=== PATIENT | female | born 1950 | race Caucasian/White ===

== ENCOUNTER → 2021-01-21 | Outpatient (CLI) | payer OTHER ==
[~2021-01-21] MED LIST: ALPRAZOLAM 0.0.25 M1 PO; CELEXA40 MG PO; COZAAR 50 MG TA50 M1 PO; LIPITOR 20 MG T20 M1 PO; LUMIGAN2.5 ML; PRED FORTE 1% EY5 M1; PROZAC20 MG PO; TESSALON PERLE100 MG PO; TOPROL XL25 MG PO; VENTOLIN HFA 1818 GM INH; XALATAN2.5 ML OPHTHALMIC
== END ==
LOC: CAT 12:23
PROVIDERS: ATTEND Internal Medicine Cardiovascular Disease
DX: Z13.6 Encounter for screening for cardiovascular disorders (principal)

== ENCOUNTER → 2021-01-21 | Outpatient (CLI) | payer OTHER ==
[~2021-01-21] MED LIST changes: +BUSPIRONE HCL5 MG PO; +ELIQUIS5 MG PO; +TAMBOCOR 100 M100 M1 PO; +XANAX 0.25 MG0.25 MG PO
== END ==
LOC: SJCVC 10:16
PROVIDERS: ATTEND Internal Medicine Cardiovascular Disease
DX: R94.31 Abnormal electrocardiogram [ECG] [EKG] (principal); R00.0 Tachycardia, unspecified; I49.1 Atrial premature depolarization; I48.0 Paroxysmal atrial fibrillation; R00.2 Palpitations; E78.5 Hyperlipidemia, unspecified; I10 Essential (primary) hypertension; R06.00 Dyspnea, unspecified; I48.91 Unspecified atrial fibrillation; F41.9 Anxiety disorder, unspecified; F32.9 Major depressive disorder, single episode, unspecified; Z79.899 Other long term (current) drug therapy; Z88.1 Allergy status to other antibiotic agents

== ENCOUNTER 2021-01-25 11:40 | Inpatient (IN) | payer OTHER ==
[~2021-01-25] VITALS: Ht 152.4 cm; Wt 75.3 kg
[~2021-01-25 11:40] MED LIST changes: -BUSPIRONE HCL5 MG PO; -ELIQUIS5 MG PO; -TAMBOCOR 100 M100 M1 PO; -XANAX 0.25 MG0.25 MG PO
[2021-01-25] MEDS ORDERED: ELIQUIS5 MG PO (12:43)
[2021-01-25] MEDS ORDERED: TAMBOCOR 100 M100 M1 PO (12:44)
[2021-01-25] MEDS ORDERED: BUSPIRONE HCL5 MG PO (12:45)
[2021-01-25] MEDS ORDERED: XANAX 0.25 MG0.25 MG PO (12:46)
--- NOTE | 2021-01-25 12:47 | NUR ---
PT ORIENTED TO RROM AND UNIT, BED LOW AND LOCKED, SIDE RAILS UPX3, CALL LIGHT IN REACH, TELE APPLIED.
[2021-01-25 13:00] VITALS: BP 158/103
[2021-01-25 15:46] VITALS: BP 150/96
--- NOTE | 2021-01-25 16:06 | EKG ---
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: FSCHWALBE : 1950 Requested By: Judith Triplett Order Number: [id number] MD: Ben Padilla Measurements Intervals [place] Rate: 109 P: OR: QRS: -12 QRSD: 79 T: 5 QT: 366 QTc: 494 Interpretive Statements Suspect Atrial flutter with predominant 2:1 AV block Ventricular premature complex Baseline wander in lead(s) I,II,III,aVR,aVF,V4,V5 Compared to ECG 10/01/2016 04:36:43 2:1 AV block now present Ventricular premature complex(es) now present Sinus rhythm no longer present ST (T wave) deviation no longer present Electronically Signed On 01-25-2021 16:06:37 CDT by Ben Padilla [email or web address] <ELECTRONICALLY SIGNED> By: Ben Padilla MD, [facility] 01/25/21 1606 1547 1547 Ben Padilla MD, [facility] /EPI
[2021-01-25 16:09] LABS: HEMATOCRIT 37.7 % (37.0-47.0); HEMOGLOBIN 12.5 gm/dL (12.0-15.0); MCH 31.4 pg (26.0-34.0); MCHC 33.3 g/dL (28.0-37.0); MCV 94.5 fL (80.0-100.0); RBC 3.99 mil/uL (4.20-5.00); RDW 13.6 % (10.5-14.5); WBC 9.9 thou/uL (4.0-11.0)
[2021-01-25 16:25] LABS: ALBUMIN 2.9 g/dL (3.4-5.0); CALCIUM 8.7 mg/dL (8.5-10.1); POTASSIUM 5.4 mmol/L (3.5-5.1); TOTAL PROTEIN 7.2 g/dL (6.4-8.2)
--- NOTE | 2021-01-25 19:06 | NUR ---
BEDSIDE REPORT GIVEN AND SCDS ON BILAT.
[2021-01-25 20:00] VITALS: BP 179/104
[2021-01-26 00:08] VITALS: BP 101/104
--- NOTE | 2021-01-26 03:38 | NUR ---
ASSESSMENTS CHARTED, MEDS CHARTED GIVEN. PATIENT IS LEGALLY BLIND, AND REQUESTED HER STAY TO HELP HER. PER SHERLYN, NEEDED TO GO HOME BUT CAN RETURN AT 0500 0R 0600 HIS IS HAVING SURGERY IN THE AM. PATIENT TO HAVE PACEMAKER PLACEMENT PROCEDURE IN THE AM. C/O ANXIETY, MEDS GIVEN CHARTED. PATIENT HAS BEEN NPO SINCE MIDNIGHT FOR MORNING PROCEDURE.
[2021-01-26 04:30] VITALS: BP 159/110
--- NOTE | 2021-01-26 05:39 | NUR ---
PATIENT WENT BACK INTO AFIB W/ RVR. SPOKE WITH DR. COURTNEY. RECEIVED ORDERS FOR AMIODARONE AND DILTIAZEM BOTH PER PROTOCOL. IV'S WERE STARTED. MEDS WERE EXPLAINED TO PATIENT.
[2021-01-26 07:58] LABS: APTT 27.8 Seconds (24.5-32.8); PROTIME 10.9 Seconds (10.5-12.1)
--- NOTE | 2021-01-26 08:04 | NUR ---
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
--- NOTE | 2021-01-26 11:59 | NUR ---
PT IN BED WITH BEDREST ORDERS. PT VOICES NO CONCERNS AT THIS TIME. PTS ASSESSMENT CHARTED. PT EDUCATED ON HEART RATE MEDICATIONS AND PLAN FOR THE REST OF THE DAY. PT EDUCATED ON CARDIAC PROCEDURE POST OP. VSS. WILL CONTINUE TO MONITOR AND FOLLOW POC.
--- NOTE | 2021-01-26 16:09 | NUR ---
PT IN BED, TALKING WITH FAMILY. ASSESSMENT UNCHANGED. VSS. WILL CONTINUE TO MONITOR AND FOLLOW POC.
[2021-01-26 16:13] VITALS: BP 163/81
[2021-01-26 21:42] VITALS: BP 163/59
--- NOTE | 2021-01-27 08:23 | NUR ---
ASSUMED PT CARE AT 0700, PT RESTING AT THIS TIME. ASSESSMENT PERFORMED CHARTED. VSS. WILL CONITNUE TO MONITOR AND FOLLOW POC. ANKUR Cummins NP DISCUSSED WITH PATIENT ABOUT POSSIBLE CARDIOVERSION TOMORROW DUE TO UNCONTROLLED AFIB.
[2021-01-27 11:37] VITALS: BP 142/65
--- NOTE | 2021-01-27 11:42 | NUR ---
PT IN BED WITH FAMILY AT BEDSIDE, ASSESSMENT UNCHANGED. VSS. WILL CONTINUE TO MONITOR AND FOLLOW POC.
--- NOTE | 2021-01-27 16:22 | NUR ---
PTS ASSESSMENT UNCHANGED. PT IN BED TALKING WITH FAMILY IN THE ROOM. PT DENIES ANY CONCERNS AT THIS TIME. CONSENT FOR UNA SIGNED. PT ABLE TO VERBALIZE WHAT THE PROCEDURE IS AND THE PROVIDER TALKED TO HER ABOUT THE PROCEDURE. VSS. WILL CONTINUE TO MONITOR AND FOLLOW POC.
[2021-01-27 19:36] VITALS: BP 140/75
[2021-01-28 00:23] VITALS: BP 151/70
[2021-01-28 05:05] VITALS: BP 149/77
--- NOTE | 2021-01-28 07:31 | NUR ---
PATIENTS CARES WERE ASSUMED AT SHIFT CHANGE. PATIENT WAS ASSESSED AND MEDS WERE GIVEN. PATIENT CONTINUES TO HAVE HER AMIO GTT GOING AT 0.5 PER HOUR. PATIENT IS HAPPY THAT SHE IS GOING HOME. ROUNDS WERE DONE. THE BED ALARM WAS ON . THE BED IS IN A LOW AND LOCKED POSITION.
[2021-01-28 07:38] VITALS: BP 126/88
--- NOTE | 2021-01-28 09:55 | TEE ---
[facility] [place] [address] TRANSESOPHAGEAL ECHOCARDIOGRAM Name: SRAVANTHI PATEL Room #: 206-P ADM IN M.R.#: [id number] Admission: 01/25/21 Attend Phys: Gumaro Cavazos MD, Discharge: Date of : 54 Report #: [id number] THIS REPORT FOR: cc: Tigist Calvillo MD, Cora A. MD Santiago, Patrick MD FAC ~ APPROVED REPORT Study performed: 01/28/2021 08:27:24 EXAM: Transesophageal Echocardiogram Patient Location: In-Patient Room #: [facility] Status: routine BSA: 1.72 HR: 120 bpm BP: 133/50 mmHg Rhythm: Atrial Fibrillation Other Information Study Quality: Good Indications Atrial Fibrillation Cardioversion. Pacemaker implanted 01/26/21 Procedure After obtaining informed consent, patient underwent transesophageal echo in the [employer]. Type of Sedation : Conscious Sedation Sedation was administered by DEL Jennings. Sedation was achieved intravenously with: Versed (5) Fentanyl (50) Transesophageal probe was inserted and advanced into esophagus without difficulty by Ben Padilla MD [facility]. Echo enhancement indication: R/O Septal defect. Echo enhancement agent administered: Agitated Saline The UNA was performed without complications. Synchronized Cardioversion attempted: Unsuccessful Synchronized Cardioversion acheived with 100 Joules after 2 attempt(s). Rhythm following Synchronized Cardioversion: Afib Throughout the procedure, the blood pressure, pulse oximetry, cardiac rhythm, and rate were monitored. [facility] [address] [place] [address] TRANSESOPHAGEAL ECHOCARDIOGRAM Name: SRAVANTHI PATEL Room #: 206-P [facility] IN .R.#: [id number] Admission: 01/25/21 Attend Phys: Gumaro Cavazos, Discharge: Date of : 54 Report #: [id number] The patient tolerated the procedure without adverse effects. Recovery from conscious sedation was uneventful and vital signs were stable. Left Ventricle The left ventricle is normal size. Left ventricular systolic function is mildly decreased. LVEF is 45-50%. Right Ventricle The right ventricle is normal size. The right ventricular systolic function is normal. Atria Left atrium is dilated. No thrombus is visualized in the left atrium or appendage. Pacemaker lead is present in the right atrium. No shunting noted with contrast bubble injection. Aortic Valve The aortic valve is normal in structure. Mild aortic regurgitation. There is no aortic valvular stenosis. Mitral Valve The mitral valve is normal in structure. Mild mitral regurgitation. No evidence of mitral valve stenosis. Tricuspid Valve The tricuspid valve is normal in structure. Mild tricuspid regurgitation. Great Vessels The aortic root is normal in size. The ascending aorta is normal. <Conclusion> Atrial fibrillation at baseline Timeout was performed Consent was obtained After appropriate sedation esophageal probe was advanced without difficulty. Left atrial appendage, moderate size, no obvious mass or clot detected Mild left atrial enlargement Normal left ventricle size/wall thickness Mild global hypokinesis ejection fraction 45-50% Normal right ventricular size/function Tricuspid aortic valve [facility] [address] [place] [address] TRANSESOPHAGEAL ECHOCARDIOGRAM Name: SRAVANTHI PATEL Room #: 206-P [facility] IN .R.#: [id number] Admission: 01/25/21 Attend Phys: Gumaro Cavazos, Discharge: Date of : 54 Report #: [id number] Mild aortic valve insufficiency Mild mitral valve insufficiency Mild tricuspid valve insufficiency Pacer wire detected in the right ventricle Aorta no calcification detected No evidence of ASD/VSD by color flow/bubble study Patient was converted to sinus rhythm after 100-100 J in a biphasic mode Patient tolerated procedure well <ELECTRONICALLY SIGNED> By: Ben Padilla MD, FACC 01/28/2154 3 3 Ben Padilla MD, FACC /INF
[2021-01-28 11:12] VITALS: BP 124/71
[2021-01-28] MEDS ORDERED: DIGOXIN250 MCG PO (13:27)
[2021-01-28] MEDS ORDERED: PACERONE 200 M200 M1 PO (13:27)
[2021-01-28] MEDS ORDERED: DILTIAZEM 24HR300 M2 PO (13:27)
[2021-01-28 15:37] VITALS: BP 124/71
--- NOTE | 2021-01-28 15:38 | NUR ---
ASSESSMENT CHARTED. PT ALERT AND ORIENTED. DENIED HAVING PAIN OR DISCOMFORT. SEEN BY DR. COURTNEY. ORDERS GIVEN TO DISCHARGE PT TO HOME. DISCHARGE INSTRUCTIONS GIVEN TO PT AND THE SPOUCE/ SON. THEY VERBERLISED UNDERSTANDING.
[2021-01-28 16:42] VITALS: BP 120/52
--- NOTE | 2021-01-31 07:10 | EKG ---
[facility] [employer] [facility] [place] [address] ELECTROCARDIOGRAM REPORT Name: SRAVANTHI PATEL Room #: 206-[facility] IN .R.#: [id number] Admission: 01/25/21 Attend Phys: Gumaro Cavazos MD, Discharge: 01/28/21 Date of : 54 Report #: [id number] [facility] Test Date: 2021-01-28 Test Time: 13:53:32 Pat Name: SRAVANTHI PATEL Department: Room: 206 Gender: F Rn Radiation Oncology: FSCHWALCRIS : 1950 Requested By: Judith Triplett Order Number: [id number] MD: Ben Padilla Measurements Intervals [place] Rate: 65 P: MD: QRS: -6 QRSD: 69 T: -87 QT: 237 QTc: 247 Interpretive Statements Atrial flutter with predominant 4:1 AV block Posterior infarct, acute (LCx) ST depression V1-V3, suggest recording posterior leads Compared to ECG 01/25/2021 15:47:42 ST (T wave) deviation now present 2:1 AV block no longer present Ventricular premature complex(es) no longer present Electronically Signed On 01-31-2021 7:10:16 CDT by Ben Padilla [email or web address] <ELECTRONICALLY SIGNED> By: Ben Padilla MD, [facility] 01/31/21 0710 1353 1353 Ben Padilla MD, [facility] /EPI
== END 2021-01-28 17:00 | disposition home or self-care (01) | DRG 243 ==
LOC: 2N 11:40
PROVIDERS: Internal Medicine Cardiovascular Disease; Nurse Practitioner Adult Health; ADMIT Internal Medicine Cardiovascular Disease; ATTEND Internal Medicine Cardiovascular Disease
DX: I49.5 Sick sinus syndrome (principal); I48.92 Unspecified atrial flutter; I48.20 Chronic atrial fibrillation, unspecified; F41.9 Anxiety disorder, unspecified; F32.9 Major depressive disorder, single episode, unspecified; I10 Essential (primary) hypertension; Z20.822 Contact with and (suspected) exposure to COVID-19; Z79.899 Other long term (current) drug therapy; Z79.01 Long term (current) use of anticoagulants
CPT/HCPCS: 10081; 62110; 62900; 70005

== ENCOUNTER → 2021-01-31 | Outpatient (CLI) | payer OTHER ==
[~2021-01-31] MED LIST changes: +BUSPIRONE HCL5 MG PO; +DIGOXIN250 MCG PO; +DILTIAZEM 24HR300 M2 PO; +ELIQUIS5 MG PO; +PACERONE 200 M200 M1 PO; +TAMBOCOR 100 M100 M1 PO; +XANAX 0.25 MG0.25 MG PO
== END ==
LOC: SJCVCIMAG 14:30
PROVIDERS: ATTEND Internal Medicine Cardiovascular Disease
DX: I82.612 Acute embolism and thrombosis of superficial veins of left upper extremity (principal); M79.602 Pain in left arm; M79.89 Other specified soft tissue disorders; Z95.0 Presence of cardiac pacemaker

== ENCOUNTER → 2021-02-02 | Outpatient (CLI) | payer OTHER | LOC: SJCVC 16:00 | PROVIDERS: ATTEND Internal Medicine Cardiovascular Disease | DX: I48.0 Paroxysmal atrial fibrillation (principal); I48.3 Typical atrial flutter; I49.5 Sick sinus syndrome; I10 Essential (primary) hypertension; E78.5 Hyperlipidemia, unspecified; Z90.49 Acquired absence of other specified parts of digestive tract; Z95.0 Presence of cardiac pacemaker; Z88.8 Allergy status to other drugs, medicaments and biological substances; Z79.899 Other long term (current) drug therapy; Z82.49 Family history of ischemic heart disease and other diseases of the circulatory system ==

== ENCOUNTER → 2021-02-08 | Outpatient (CLI) | payer OTHER | LOC: SJCVCIMAG | PROVIDERS: ATTEND Internal Medicine Cardiovascular Disease | DX: I82.612 Acute embolism and thrombosis of superficial veins of left upper extremity (principal); M79.89 Other specified soft tissue disorders; I49.5 Sick sinus syndrome; I48.0 Paroxysmal atrial fibrillation; E78.00 Pure hypercholesterolemia, unspecified; D68.59 Other primary thrombophilia; I10 Essential (primary) hypertension; Z90.49 Acquired absence of other specified parts of digestive tract; Z95.0 Presence of cardiac pacemaker; Z88.8 Allergy status to other drugs, medicaments and biological substances; Z79.899 Other long term (current) drug therapy; Z82.49 Family history of ischemic heart disease and other diseases of the circulatory system ==

== ENCOUNTER → 2021-03-17 | Outpatient (CLI) | payer OTHER | LOC: SJCVC 09:17 | PROVIDERS: ATTEND Internal Medicine Cardiovascular Disease | DX: R94.31 Abnormal electrocardiogram [ECG] [EKG] (principal); I48.0 Paroxysmal atrial fibrillation; I10 Essential (primary) hypertension; D68.59 Other primary thrombophilia; R06.00 Dyspnea, unspecified; F32.9 Major depressive disorder, single episode, unspecified; F41.9 Anxiety disorder, unspecified; Z95.0 Presence of cardiac pacemaker; Z90.49 Acquired absence of other specified parts of digestive tract; Z88.8 Allergy status to other drugs, medicaments and biological substances; Z79.899 Other long term (current) drug therapy; Z82.49 Family history of ischemic heart disease and other diseases of the circulatory system ==

== ENCOUNTER → 2021-03-25 | Outpatient (CLI) | payer OTHER | LOC: SJCVCIMAG 08:00 | PROVIDERS: ATTEND Internal Medicine Cardiovascular Disease | DX: I48.91 Unspecified atrial fibrillation (principal); R06.00 Dyspnea, unspecified; E78.5 Hyperlipidemia, unspecified; Z79.899 Other long term (current) drug therapy; Z88.1 Allergy status to other antibiotic agents ==

== ENCOUNTER → 2021-04-27 | Outpatient (CLI) | payer OTHER | LOC: SJCVC 12:34 | PROVIDERS: ATTEND Internal Medicine Cardiovascular Disease | DX: I48.0 Paroxysmal atrial fibrillation (principal); I48.3 Typical atrial flutter; I10 Essential (primary) hypertension; E78.5 Hyperlipidemia, unspecified; H54.8 Legal blindness, as defined in USA; F32.9 Major depressive disorder, single episode, unspecified; Z95.0 Presence of cardiac pacemaker; Z88.1 Allergy status to other antibiotic agents; Z88.2 Allergy status to sulfonamides; Z79.899 Other long term (current) drug therapy ==

== ENCOUNTER → 2021-07-21 | Outpatient (CLI) | payer OTHER | LOC: SJCVC 09:49 | PROVIDERS: ATTEND Internal Medicine Cardiovascular Disease | DX: I11.9 Hypertensive heart disease without heart failure (principal); I48.0 Paroxysmal atrial fibrillation; I48.3 Typical atrial flutter; I49.5 Sick sinus syndrome; Z95.0 Presence of cardiac pacemaker; E78.5 Hyperlipidemia, unspecified; Z90.49 Acquired absence of other specified parts of digestive tract; Z98.890 Other specified postprocedural states; Z79.899 Other long term (current) drug therapy; Z88.8 Allergy status to other drugs, medicaments and biological substances ==